=== PATIENT | female | born 1985 | race American Indian/Alaskan Native ===

== ENCOUNTER 2019-02-12 12:15 | Emergency (ER) | payer SELFPAY ==
--- NOTE | 2019-02-12 12:35 | Event Note ---
ED Screening Note ED Screening Note: history of AV malformation states that she had an episode of LOC today and states she hit her head states she has episodes of dizziness and syncope states she has an appt with neurology next saturday c/o right wrist pain, mild VILLASENOR no N/V, no vision changes, no numbness or weakness LNMP: december 27 PMHx asthma This initial assessment/diagnostic orders/clinical plan/treatment(s) is/are subject to change based on patients health status, clinical progression and re- assessment by fellow clinical providers in the ED. Further treatment and workup at subsequent clinical providers discretion. Patient/guardian urged not to elope from the ED as their condition may be serious if not clinically assessed and managed. Initial orders include: urine preg, EKG, CT head, labs, xr wrist right
[2019-02-12 13:19] LABS: Basophils # (Auto) 0.1 K/mm3 (0.0-0.1); Basophils % (Auto) 0.9 % (0.0-1.8); Eosinophils # (Auto) 0.1 K/mm3 (0.0-0.4); Eosinophils % (Auto) 1.9 % (0.0-4.3); Hematocrit 37.7 % (30.3-42.9); Hemoglobin 12.7 gm/dl (10.1-14.3); Lymphocytes # (Auto) 2.4 K/mm3 (1.2-5.4); Mean Corpuscular HGB Conc 34 % (30-34); Mean Corpuscular Volume 79 fl (79-97); Monocytes # (Auto) 0.5 K/mm3 (0.0-0.8); Platelet Count 284 K/mm3 (140-440); Red Blood Count 4.77 M/mm3 (3.65-5.03)
--- NOTE | 2019-02-12 13:22 | XRay Report ---
Right wrist 3 views INDICATION / CLINICAL INFORMATION: Right wrist pain after fall. COMPARISON: None available. FINDINGS: BONES/JOINT(S): No acute fracture or subluxation. No significant degenerative changes. SOFT TISSUES: No significant abnormality. ADDITIONAL FINDINGS: None. Signer Name: Fareed Garcia MD Signed: 02/12/2019 1:18 PM Workstation Name: [id number]
[2019-02-12 13:38] LABS: BUN/Creatinine Ratio 13; Blood Urea Nitrogen 10 mg/dL (7-17); Calcium 9.1 mg/dL (8.4-10.2); Hemolysis Index 4
--- NOTE | 2019-02-12 14:31 | Emergency Department Report ---
ED Syncope HPI - General Chief Complaint: Syncope Stated Complaint: PASSED OUT/(R) WRIST PAIN Time Seen by Provider: 02/12/19 12:32 - History of Present Illness Initial Comments: Patient is 33 years old female with a recent diagnosis of brain AV malformation with recent episode of syncope. Patient presented to the ER complaining of one episode of syncope this morning. Patient denied any loss of consciousness, focal weakness numbness or tingling sensation. She also denied any bowel or bladder incontinence. Patient denied any chest pain or shortness of breath. Patient stated that she was immediately back to her baseline. Patient stated that she has an appointment next week with our neurologist. Timing/Prior Episodes: single episode today, recent history Precipitating Factors: Positive: none Context: standing Loss of Consciousness: no loss of consciousness Current Symptoms: back to normal - Related Data Allergies/Adverse Reactions: Allergies erythromycin base Allergy (Verified 02/12/19 12:21) Unknown ED Review of Systems ROS: Stated complaint: PASSED OUT/(R) WRIST PAIN Other details as noted in HPI Comment: All other systems reviewed and negative Constitutional: denies: chills, fever Respiratory: denies: cough, orthopnea, shortness of breath, SOB with exertion, SOB at rest, stridor, wheezing Cardiovascular: denies: chest pain, palpitations, dyspnea on exertion, orthopnea Gastrointestinal: denies: abdominal pain, nausea, vomiting, diarrhea, constipation, hematemesis, melena Neurological: denies: headache, weakness, numbness, paresthesias, confusion, abnormal gait ED Past Medical Hx - Past Medical History Hx Asthma: Yes Additional medical history: MAL FORMATION IN HEAD - Surgical History Additional Surgical History: C SECTION - Social History Smoking Status: Never Smoker Substance Use Type: None ED Physical Exam - General Limitations: No Limitations General appearance: alert, in no apparent distress - Head Head exam: Present: atraumatic, normocephalic, normal inspection - Eye Eye exam: Present: normal appearance, PERRL - ENT ENT exam: Present: normal exam, normal orophraynx, mucous membranes moist - Neck Neck exam: Present: normal inspection, full ROM. Absent: tenderness, meningismus, lymphadenopathy, thyromegaly - Respiratory Respiratory exam: Present: normal lung sounds bilaterally - Cardiovascular Cardiovascular Exam: Present: regular rate, normal rhythm, normal heart sounds - GI/Abdominal GI/Abdominal exam: Present: soft, normal bowel sounds. Absent: distended, tenderness, guarding, rebound, rigid, organomegaly, mass, bruit, pulsatile mass, hernia - Extremities Exam Extremities exam: Present: normal inspection, full ROM, normal capillary refill. Absent: tenderness, pedal edema, joint swelling, calf tenderness - Back Exam Back exam: Present: normal inspection, full ROM. Absent: CVA tenderness (R), CVA tenderness (L), muscle spasm, paraspinal tenderness, vertebral tenderness - Neurological Exam Neurological exam: Present: alert, oriented X3, CN II-XII intact, normal gait, reflexes normal - Psychiatric Psychiatric exam: Present: normal mood - Skin Skin exam: Present: warm, intact, normal color ED Course Vital Signs 02/12/19 02/12/19 12:33 14:05 Temperature 98.5 F Pulse Rate 98 H 83 Respiratory 16 20 Rate Blood Pressure 167/96 166/88 [Left] O2 Sat by Pulse 97 98 Oximetry ED Medical Decision Making - Lab Data Result diagrams: 02/12/19 13:06 02/12/19 13:06 - Radiology Data Radiology results: report reviewed - Medical Decision Making Patient is 33 years old female with a recent diagnosis of brain AV malformation with recent episode of syncope. Patient presented to the ER complaining of one episode of syncope this morning. Patient denied any loss of consciousness, focal weakness numbness or tingling sensation. She also denied any bowel or bladder incontinence. Patient denied any chest pain or shortness of breath. Patient stated that she was immediately back to her baseline. Patient stated that she has an appointment next week with our neurologist CT brain is negative for acute finding. Patient denied any more episodes. Labs reviewed and is unremarkable. CT brain is negative for acute finding. Patient advised to follow-up with her primary care physician in the next 2-3 days. Critical care attestation.: If time is entered above; I have spent that time in minutes in the direct care of this critically ill patient, excluding procedure time. ED Disposition Clinical Impression: Syncope, AVM (arteriovenous malformation) brain, Sprain of wrist, right Disposition: - TO HOME OR SELFCARE Is pt being admited?: No Condition: Stable Instructions: Syncope (ED), Wrist Sprain (ED) Referrals: PRIMARY CARE, [Primary Care Provider] - 3-5 Days
--- NOTE | 2019-02-12 16:13 | Cat Scan Report ---
CT HEAD WITHOUT CONTRAST INDICATION : episode of syncope, hit head. TECHNIQUE: Axial imaging performed from the skull apex through the skull base without the use of con trast. Sagittal and coronal reformatted images. All CT scans at this location are performed using C T dose reduction for ALARA by means of automated exposure control. COMPARISON: None FINDINGS: Parenchyma: No acute intracranial hemorrhage or parenchymal abnormality. Ventricles: Ventricles are normal in size and appear symmetric. Bones: No acute osseous abnormality. Sinuses: Sinuses and mastoid air cells are clear. Soft tissues: Soft tissues including the orbits appear normal. IMPRESSION: No acute abnormality. Signer Name: Fausto Torres Jr, MD Signed: 02/12/2019 4:08 PM Workstation Name: [id number]
[2019-02-12 16:39] VITALS: BP 121/62
== END 2019-02-12 16:40 | disposition home or self-care (01) ==
LOC: ED 12:15
DX: S63.501A Unspecified sprain of right wrist, initial encounter (principal); Q27.30 Arteriovenous malformation, site unspecified; J45.909 Unspecified asthma, uncomplicated; Z98.890 Other specified postprocedural states; Z88.1 Allergy status to other antibiotic agents; W18.30XA Fall on same level, unspecified, initial encounter; Y93.89 Activity, other specified; Y92.89 Other specified places as the place of occurrence of the external cause; Y99.8 Other external cause status
CPT/HCPCS: 36415; 70450; 80048; 84703; 85025; 93005; 93010; 99284